=== PATIENT | male | born 1970 | race Caucasian/White ===

== ENCOUNTER 2018-04-27 05:39 | Day surgery (SDC) | payer OTHER ==
[~2018-04-27] VITALS: Ht 185.4 cm; Wt 79.0 kg
[~2018-04-27 05:39] MED LIST: MAGNESIUM250 MG PO; VITAMIN D-32000 UNI2 PO; ZINC50 M2 PO
[2018-04-27 06:10] VITALS: BP 118/75
[2018-04-27] MEDS ORDERED: NORCO 5/3251 TABLET PO (08:08)
[2018-04-27 08:55] VITALS: BP 139/82
[2018-04-27 09:55] VITALS: BP 133/74
== END 2018-04-27 10:25 | disposition home or self-care (01) ==
LOC: SDC 05:39
PROC: 0JBF0ZZ Excision of Left Upper Arm Subcutaneous Tissue and Fascia, Open Approach (ICD-10-PCS; principal; 2018-04-27)
DX: D17.22 Benign lipomatous neoplasm of skin and subcutaneous tissue of left arm (principal); M54.9 Dorsalgia, unspecified
CPT/HCPCS: 87641; 88304; J0330; J0690; J2250; J2405; J3010